=== PATIENT | female | born 1995 | race African-American/Black ===

== ENCOUNTER 2018-06-22 15:51 | Emergency (ER) | payer SELFPAY ==
--- NOTE | 2018-06-22 17:07 | RAD ---
LEFT WRIST 3 VIEWS: Date: 06/22/18 HISTORY: Pain. COMPARISON: Left wrist radiograph from 2016. FINDINGS: There is no acute fracture or malalignment. Soft tissues are unremarkable. Scaphoid is intact. IMPRESSION: No acute fracture or malalignment. POS: JULIO CESAR
[2018-06-22] MEDS ORDERED: Ketorolac Tromethamine 30 MG/ML VIAL ONE (18:07)
== END 2018-06-22 18:23 | disposition home or self-care (01) ==
LOC: ERS 15:51
DX: M79.645 Pain in left finger(s) (principal); F17.210 Nicotine dependence, cigarettes, uncomplicated
CPT/HCPCS: 96372; J1885

== ENCOUNTER 2019-03-05 08:33 | Emergency (ER) | payer OTHER, SELFPAY ==
[2019-03-05] MEDS ORDERED: diphenhydrAMINE 50 MG/ML VIAL ONE (09:50)
[2019-03-05] MEDS ORDERED: Metoclopramide HCl 10 MG/2 ML VIAL ONE (09:50)
[2019-03-05 10:08] LABS: Pregnancy Test - Urine (BHCG) Negative (Negative); Pregu Control Background? CLEAR/WHITE (CLR/WHITE); Pregu Control Bar Appear? YES (CONTROL BAR); Specific Gravity 1.022 (1.002-1.036)
[2019-03-05] MEDS ORDERED: Ketorolac Tromethamine 30 MG/ML VIAL ONE (10:45)
== END 2019-03-05 10:59 | disposition home or self-care (01) ==
LOC: ERS 08:33
DX: G43.909 Migraine, unspecified, not intractable, without status migrainosus (principal); F41.9 Anxiety disorder, unspecified; Z87.891 Personal history of nicotine dependence
CPT/HCPCS: 81025; 96365; 96375; J1200; J1885; J2765

== ENCOUNTER 2019-10-22 09:36 | Emergency (ER) | payer OTHER, SELFPAY ==
--- NOTE | 2019-10-22 10:49 | RAD ---
Exam: Left knee 4 views: HISTORY: Pain COMPARISON: 12/16/2014 FINDINGS: No evidence for fracture, dislocation, or other significant acute osseous abnormality. IMPRESSION: No significant acute process.
[2019-10-22] MEDS ORDERED: Ibuprofen 200 MG TAB ONE (11:16)
== END 2019-10-22 11:31 | disposition home or self-care (01) ==
LOC: ERS 09:36
DX: S83.92XA Sprain of unspecified site of left knee, initial encounter (principal); Z87.891 Personal history of nicotine dependence; X50.9XXA Other and unspecified overexertion or strenuous movements or postures, initial encounter

== ENCOUNTER 2019-12-31 14:30 | Emergency (ER) | payer SELFPAY ==
[2019-12-31 15:08] LABS: #Eosinphils 0.1 thou/uL (0.0-0.7); #Monocytes 0.5 thou/uL (0.11-0.59); #Neutrophils 3.2 thou/uL (1.40-6.50); %Basophils 0.5 % (0.0-1.0); %Eosinophils 1.2 % (0.0-10.0); %Lymphocytes 34.5 % (21.0-51.0); %Monocytes 9.1 % (0.0-10.0); %Neutrophils 54.7 % (42.0-75.0); Hemoglobin 13.3 g/dL (12.0-16.0); Mean Corpuscular Hemoglobin 30.8 pg (27.0-31.0); Mean Corpuscular Volume 93.3 fL (78.0-98.0); Mean Platelet Volume 6.5 fL (7.4-10.4); Platelet Count 533 thou/uL (130-400); RBC Distribution Width 13.3 % (11.5-14.5); Red Blood Cell (RBC) Count 4.31 mill/uL (4.20-5.40); White Blood Cell (WBC) Count 5.9 thou/uL (4.8-10.8)
[2019-12-31 15:28] LABS: ALT (SGPT) 9 U/L (8-55); AST (SGOT) 13 U/L (5-34); Albumin 4.4 g/dL (3.5-5.0); Alkaline Phosphatase 64 U/L (40-110); Anion Gap 11 mmol/L (10-20); BUN (Urea Nitrogen) 20 mg/dL (7.0-18.7); Bilirubin, Total 0.2 mg/dL (0.2-1.2); Calc. Creatinine Clearance 0 mL/min (70-130); Calcium 9.5 mg/dL (7.8-10.44); Carbon Dioxide 23 mmol/L (22-29); Chloride 110 mmol/L (98-107); Estimated GFR-MDRD Greater than 90; Globulin 3.1 g/dL (2.4-3.5); Glucose 89 mg/dL (70-105); Protein, Total 7.5 g/dL (6.0-8.3); Sodium 140 mmol/L (136-145)
[2019-12-31 15:48] LABS: Bilirubin Negative (Negative); Blood, Urine Negative (Negative); Clarity Turbid (Clear); Glucose, Urine (Dipstick) Normal (Negative); Leukocyte 500 Leu/uL (Negative); Nitrite Negative (Negative); Protein, Urine (Dipstick) 10 mg/dL (Neg-Trace); Urobilinogen Normal mg/dL (Less than 2)
[2019-12-31 16:01] LABS: Bacteria/HPF 3+ HPF (None Seen)
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
== END 2019-12-31 17:45 | disposition home or self-care (01) ==
LOC: ERS 14:30
DX: O03.80 Unspecified complication following complete or unspecified spontaneous abortion (principal); F41.9 Anxiety disorder, unspecified; Z87.891 Personal history of nicotine dependence
CPT/HCPCS: 36415; 76856; 80053; 81003; 81015; 84702; 85025; 86900; 86901

== ENCOUNTER 2020-04-23 08:40 | Inpatient (IN) | payer OTHER, SELFPAY ==
[2020-04-23] MEDS ORDERED: Adacel (T-DAP) 0.5 ML SYRINGE ONE (08:49)
--- NOTE | 2020-04-23 08:57 | RAD ---
Chest one view HISTORY: Chest pain. FINDINGS: No comparison. Cardiac silhouette is magnified by projection. Shallow inspiration accentuat es pulmonary markings. Mediastinum is midline. No lobar consolidation or evidence of pneumothorax. monitoring specialist leads overlie the chest. IMPRESSION : No abnormalities are demonstrated.
[2020-04-23 08:59] LABS: #Eosinphils 0.2 thou/uL (0.0-0.7); #Lymphocytes 4.2 thou/uL (1.20-3.40); #Monocytes 0.7 thou/uL (0.11-0.59); #Neutrophils 9.2 thou/uL (1.40-6.50); %Basophils 0.3 % (0.0-1.0); %Eosinophils 1.4 % (0.0-10.0); %Lymphocytes 29.4 % (21.0-51.0); %Monocytes 5.1 % (0.0-10.0); %Neutrophils 63.8 % (42.0-75.0); Hemoglobin 11.7 g/dL (12.0-16.0); Mean Corpuscular HGB CONC 31.9 g/dL (32.0-36.0); Mean Corpuscular Hemoglobin 30.2 pg (27.0-31.0); Mean Corpuscular Volume 94.9 fL (78.0-98.0); Mean Platelet Volume 6.6 fL (7.4-10.4); Platelet Count 548 thou/uL (130-400); RBC Distribution Width 13.4 % (11.5-14.5); Red Blood Cell (RBC) Count 3.86 mill/uL (4.20-5.40); White Blood Cell (WBC) Count 14.4 thou/uL (4.8-10.8)
[2020-04-23 09:05] LABS: BHCG - Serum Negative (NEGATIVE); Pregs Control Background? CLEAR/WHITE (CLR/WHITE); Pregs Control Bar Appear? YES (CONTROL BAR)
[2020-04-23 09:16] LABS: ALT (SGPT) 36 U/L (8-55); AST (SGOT) 65 U/L (5-34); Albumin 3.8 g/dL (3.5-5.0); Alcohol 105 mg/dL (Less than 10); Alkaline Phosphatase 62 U/L (40-110); Anion Gap 14 mmol/L (10-20); BUN (Urea Nitrogen) 13 mg/dL (7.0-18.7); Bilirubin, Total 0.2 mg/dL (0.2-1.2); Calc. Creatinine Clearance 0 mL/min (70-130); Calcium 8.1 mg/dL (7.8-10.44); Carbon Dioxide 18 mmol/L (22-29); Chloride 113 mmol/L (98-107); Estimated GFR-MDRD 86; Globulin 2.8 g/dL (2.4-3.5); Glucose 133 mg/dL (70-105); Potassium 3.7 mmol/L (3.5-5.1); Protein, Total 6.6 g/dL (6.0-8.3); Sodium 141 mmol/L (136-145)
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
[2020-04-23] MEDS ORDERED: Iopamidol-370 76% 500 ML 1 ML ONE ×2 (09:43→09:44)
[2020-04-23 09:44] LABS: Bilirubin Negative (Negative); Blood, Urine Negative (Negative); Clarity Clear (Clear); Glucose, Urine (Dipstick) Normal (Negative); Leukocyte Negative Leu/uL (Negative); Nitrite Negative (Negative); Protein, Urine (Dipstick) Negative (Neg-Trace); Urobilinogen Normal mg/dL (Less than 2)
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
[2020-04-23] MEDS ORDERED: Ondansetron PF 4 MG/2 ML Vial ONE (10:33)
[2020-04-23] MEDS ORDERED: HYDROmorphone 0.5 MG/0.5 ML SYRINGE ONE (11:02)
[2020-04-23] MEDS ORDERED: Ketorolac Tromethamine 30 MG/ML VIAL ONE (11:03)
[2020-04-23] MEDS ORDERED: Lidocaine 1% w/Epinephrine 1:100K 20 ML VIAL ONE (11:15)
[2020-04-23] MEDS ORDERED: Lidocaine 1% (PF) 30 ML VIAL ONE (11:15)
[2020-04-23] MEDS ORDERED: Rocuronium Bromide 10 MG/ML (10ML VIAL) ONE (11:20)
[2020-04-23] MEDS ORDERED: Propofol 1,000 MG/100 ML VIAL IV ONE (11:20)
[2020-04-23] MEDS ORDERED: Ondansetron PF 4 MG/2 ML Vial IVP PRN (12:17)
[2020-04-23] MEDS ORDERED: Dextrose 50% Abboject 50 ML SYRINGE SLOW IVP PRN (12:17)
[2020-04-23] MEDS ORDERED: Dextrose 5% in Water 1,000 ML IV PRN (12:17)
[2020-04-23] MEDS ORDERED: Ventilator Sedation Protocol 1 EACH FS ONE (12:21)
[2020-04-23] MEDS ORDERED: Lorazepam 2 MG/ML VIAL SLOW IVP PRN (12:28)
[2020-04-23] MEDS ORDERED: Morphine 2 MG/ML SYRINGE SLOW IVP PRN (12:28)
[2020-04-23] MEDS ORDERED: Fentanyl BOLUS 250 ML IVPB PRN (12:28)
[2020-04-23] MEDS ORDERED: Propofol BOLUS 1,000 MG/100 ML VIAL IV PRN (12:28)
[2020-04-23] MEDS ORDERED: DISCONTINUE PREVIOUS NARCOTIC PAIN MEDICATIONS AND BENZODIAZEPINES FS SCH (12:28)
[2020-04-23] MEDS ORDERED: Sodium Chloride 0.9% 1,000 ML IV SCH (12:30)
[2020-04-23 12:35] LABS: Lactic Acid 2.2 mmol/L (0.5-2.2)
[2020-04-23] MEDS ORDERED: Fentanyl 100 MCG/2 ML VIAL ONE ×2 (12:42→13:15)
[2020-04-23 13:02] LABS: Actual Bicarbonate (HCO3a) 17.1 mEq/L (22-28); Base Excess (BEa) -9.5 mEq/L (-2.0 to +3.0); CO2 Tension 39.6 mmHg (35.0-45.0); Calcium, Ionized 1.11 mmol/L (1.12-1.30); Carboxyhemoglobin (COHb) 0.6 gm% (0.0-3.0); Hemoglobin (Hb) 11.1 g/dL (12.0-16.0); O2 Tension (PaO2), arterial 270.9 mmHg (80.0-100.0); Potassium - ABG Lab 3.49 mmol/L (3.70-5.30)
[2020-04-23] MEDS ORDERED: Sodium Bicarb 50 MEQ/50 ML Abboject 8.4% SYRINGE IVP SCH (13:15)
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
[2020-04-23] MEDS: fentaNYL Citrate/PF 2,000 MCG in Sodium Chloride 0.9% 60 ML IV SCH (13:49)
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
[2020-04-23] MEDS: Lactated Ringer's 1,000 ML IV SCH ×2 (14:13→21:27)
[2020-04-23] MEDS: Propofol 1,000 MG/100 ML VIAL IV PRN ×3 (14:28→21:26)
[2020-04-23 14:32] VITALS: BMI 44.1
[2020-04-23 15:02] LABS: Puncture Site RRAD; pH, Arterial 7.25 (7.35-7.45)
--- NOTE | 2020-04-23 15:31 | RAD ---
EXAM: CHEST ONE VIEW: History: Post intubation. FINDINGS: NG tube and endotracheal tubes are in satisfactory position. Several minimally displaced right rib fr actures are noted without significant pneumothorax or pleural effusion. The left chest is unremarkabl e. IMPRESSION: NG tube and endotracheal tubes in position. Right rib fractures. No overt pneumothorax or pleural eff usion. POS: [facility]
[2020-04-23 16:15] LABS: CK (CPK) 626 U/L (29-168); Magnesium 1.6 mg/dL (1.6-2.6); Phosphorus 3.8 mg/dL (2.3-4.7)
[2020-04-23] MEDS ORDERED: Calcium Chloride 1 GM/10 ML Abboject SYRINGE IVP SCH (16:30)
[2020-04-23] MEDS ORDERED: Magnesium 2 GM/50 ML 2 GM in Premix Bag 1 BAG IVPB SCH (16:30)
[2020-04-23 17:50] LABS: Medtox Reader # READER 4; THC/Cannabinoid Screen Detected (NotDetected)
[2020-04-23 17:51] LABS: Amphetamine Not Detected (NotDetected); Barbiturates Screen Not Detected (NotDetected); Benzodiazepine Screen Not Detected (NotDetected); Cocaine Metabolite Screen Not Detected (NotDetected); Medtox Control Line Valid? VALID (VALID); Methadone Not Detected (NotDetected); Methamphetamine Not Detected (NotDetected); Opiate Screen Not Detected (NotDetected); Oxycodone Screen Not Detected (NotDetected); Phencyclidine (PCP) Not Detected (NotDetected); Tricyclic Screen Not Detected (NotDetected)
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
[2020-04-23 18:28] LABS: Actual Bicarbonate (HCO3a) 20.8 mEq/L (22-28); Base Excess (BEa) -3.6 mEq/L (-2.0 to +3.0); CO2 Tension 35.2 mmHg (35.0-45.0); Calcium, Ionized 1.23 mmol/L (1.12-1.30); Hemoglobin (Hb) 10.3 g/dL (12.0-16.0); O2 Tension (PaO2), arterial 90.8 mmHg (80.0-100.0); Potassium - ABG Lab 3.82 mmol/L (3.70-5.30); pH, Arterial 7.39 (7.35-7.45)
[2020-04-23 18:29] LABS: Puncture Site R RADIAL
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
[2020-04-23] MEDS: Famotidine/PF 20 mg/2ml Vial SLOW IVP SCH (21:27)
[2020-04-24] MEDS: Propofol 1,000 MG/100 ML VIAL IV PRN ×6 (00:53→21:34)
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
[2020-04-24 04:14] LABS: Phosphorus 3.2 mg/dL (2.3-4.7)
[2020-04-24 04:15] LABS: Anion Gap 9 mmol/L (10-20); BUN (Urea Nitrogen) 13 mg/dL (7.0-18.7); Calc. Creatinine Clearance 239 mL/min (70-130); Carbon Dioxide 23 mmol/L (22-29); Chloride 110 mmol/L (98-107); Estimated GFR-MDRD Greater than 90; Glucose 110 mg/dL (70-105); Magnesium 2.2 mg/dL (1.6-2.6); Potassium 3.4 mmol/L (3.5-5.1); Sodium 139 mmol/L (136-145)
[2020-04-24] MEDS: Lactated Ringer's 1,000 ML IV SCH ×3 (04:48→23:39)
[2020-04-24] MEDS ORDERED: Potassium Phosphate 15 MMOL in Sodium Chloride 0.9% 250 ML 250 ML IVPB SCH (06:30)
[2020-04-24 06:53] LABS: Actual Bicarbonate (HCO3a) 23.2 mEq/L (22-28); Base Excess (BEa) -0.8 mEq/L (-2.0 to +3.0); CO2 Tension 35.4 mmHg (35.0-45.0); Calcium, Ionized 1.16 mmol/L (1.12-1.30); Carboxyhemoglobin (COHb) 1.4 gm% (0.0-3.0); Hemoglobin (Hb) 8.4 g/dL (12.0-16.0); O2 Tension (PaO2), arterial 110.9 mmHg (80.0-100.0); Potassium - ABG Lab 3.35 mmol/L (3.70-5.30); pH, Arterial 7.44 (7.35-7.45)
[2020-04-24 06:55] LABS: Puncture Site ALINE
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
[2020-04-24] MEDS ORDERED: Sodium Chloride 0.9% 1,000 ML IV SCH (08:45)
[2020-04-24] MEDS: Famotidine/PF 20 mg/2ml Vial SLOW IVP SCH ×2 (09:00→20:10)
[2020-04-24] MEDS ORDERED: Pantoprazole 40 MG VIAL IVP SCH (09:00)
[2020-04-24 09:13] LABS: #Lymphocytes 1.3 thou/uL (1.20-3.40); #Monocytes 0.5 thou/uL (0.11-0.59); %Basophils 0.3 % (0.0-1.0); %Eosinophils 0.6 % (0.0-10.0); %Lymphocytes 19.2 % (21.0-51.0); %Monocytes 6.5 % (0.0-10.0); %Neutrophils 73.4 % (42.0-75.0); Hemoglobin 8.6 g/dL (12.0-16.0); Mean Corpuscular HGB CONC 33.1 g/dL (32.0-36.0); Mean Corpuscular Hemoglobin 31.6 pg (27.0-31.0); Mean Corpuscular Volume 95.3 fL (78.0-98.0); Mean Platelet Volume 6.7 fL (7.4-10.4); Platelet Count 366 thou/uL (130-400); RBC Distribution Width 13.7 % (11.5-14.5); Red Blood Cell (RBC) Count 2.73 mill/uL (4.20-5.40); White Blood Cell (WBC) Count 6.9 thou/uL (4.8-10.8)
[2020-04-24] MEDS: Dexamethasone 4 MG in Sodium Chloride 0.9% 50 ML IVPB SCH ×3 (09:32→20:10)
[2020-04-24] MEDS: fentaNYL Citrate/PF 2,000 MCG in Sodium Chloride 0.9% 60 ML IV SCH (09:45)
--- NOTE | 2020-04-24 10:32 | RAD ---
CHEST 1 VIEW: HISTORY: Respiratory insufficiency. COMPARISON: 04/23/2020. FINDINGS/IMPRESSION: There are some right rib fractures. No significant pneumothorax. Life support tubes remain in place and stable. IMPRESSION: Stable-appearing chest. Continue short-term followup. POS: [facility]
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
[2020-04-24 16:56] LABS: Hemoglobin 7.6 g/dL (12.0-16.0); Platelet Count 304 thou/uL (130-400)
[2020-04-25] MEDS: Propofol 1,000 MG/100 ML VIAL IV PRN ×6 (01:50→21:07)
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
[2020-04-25] MEDS: Dexamethasone 4 MG in Sodium Chloride 0.9% 50 ML IVPB SCH ×4 (03:34→21:06)
[2020-04-25 04:12] LABS: #Lymphocytes 0.5 thou/uL (1.20-3.40); #Monocytes 0.3 thou/uL (0.11-0.59); %Eosinophils 0.1 % (0.0-10.0); %Lymphocytes 6.9 % (21.0-51.0); %Monocytes 3.7 % (0.0-10.0); %Neutrophils 89.3 % (42.0-75.0); Hemoglobin 7.3 g/dL (12.0-16.0); Mean Corpuscular HGB CONC 32.5 g/dL (32.0-36.0); Mean Corpuscular Hemoglobin 31.2 pg (27.0-31.0); Mean Corpuscular Volume 96.1 fL (78.0-98.0); Platelet Count 315 thou/uL (130-400); RBC Distribution Width 13.6 % (11.5-14.5); Red Blood Cell (RBC) Count 2.32 mill/uL (4.20-5.40); White Blood Cell (WBC) Count 7.8 thou/uL (4.8-10.8)
[2020-04-25 04:55] LABS: Anion Gap 8 mmol/L (10-20); BUN (Urea Nitrogen) 10 mg/dL (7.0-18.7); Calc. Creatinine Clearance 246 mL/min (70-130); Calcium 8.1 mg/dL (7.8-10.44); Carbon Dioxide 23 mmol/L (22-29); Chloride 111 mmol/L (98-107); Estimated GFR-MDRD Greater than 90; Glucose 148 mg/dL (70-105); Magnesium 2.1 mg/dL (1.6-2.6); Potassium 3.9 mmol/L (3.5-5.1); Sodium 138 mmol/L (136-145)
[2020-04-25] MEDS: fentaNYL Citrate/PF 2,000 MCG in Sodium Chloride 0.9% 60 ML IV SCH ×2 (05:21→23:01)
[2020-04-25 07:09] LABS: Actual Bicarbonate (HCO3a) 22.4 mEq/L (22-28); Base Excess (BEa) -1.3 mEq/L (-2.0 to +3.0); Calcium, Ionized 1.14 mmol/L (1.12-1.30); Carboxyhemoglobin (COHb) 1.8 gm% (0.0-3.0); O2 Tension (PaO2), arterial 97.9 mmHg (80.0-100.0); pH, Arterial 7.45 (7.35-7.45)
[2020-04-25 07:19] LABS: Puncture Site ALINE
[2020-04-25] MEDS: Lactated Ringer's 1,000 ML IV SCH ×3 (08:29→23:47)
[2020-04-25] MEDS: Famotidine/PF 20 mg/2ml Vial SLOW IVP SCH ×2 (08:30→21:06)
[2020-04-25] MEDS ORDERED: Furosemide 20 MG/2 ML VIAL SLOW IVP SCH ×2 (08:30→22:00)
[2020-04-25] MEDS: Polyethylene Glycol 3350 17 GM Packet PO SCH (08:31)
[2020-04-25] MEDS: Senokot S 8.6-50 MG TAB PO SCH ×2 (08:31→21:06)
[2020-04-25] MEDS: Folic Acid 1 MG TAB PER TUBE SCH (08:35)
[2020-04-25] MEDS: Thiamine 100 MG TAB PER TUBE SCH (08:35)
[2020-04-25] MEDS: Multivits W-Minerals Liquid 15 ML LIQ PER TUBE SCH (09:27)
[2020-04-25 19:28] LABS: Hemoglobin 7.5 g/dL (12.0-16.0); Platelet Count 373 thou/uL (130-400)
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
[2020-04-25] MEDS ORDERED: Acetaminophen 650 MG/20.3 ML UDCUP PO PRN (23:21)
[2020-04-25] MEDS ORDERED: Acetaminophen 650 MG/20.3 ML UDCUP PER TUBE PRN (23:30)
[2020-04-26] MEDS: Propofol 1,000 MG/100 ML VIAL IV PRN ×3 (01:42→09:12)
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
[2020-04-26] MEDS: Dexamethasone 4 MG in Sodium Chloride 0.9% 50 ML IVPB SCH ×2 (03:08→08:57)
[2020-04-26 06:41] LABS: Band 14 % (5-11); Hemoglobin 6.6 g/dL (12.0-16.0); Lymphocytes 9 % (21-51); MDiff Complete? YES; Mean Corpuscular HGB CONC 32.8 g/dL (32.0-36.0); Mean Corpuscular Hemoglobin 31.1 pg (27.0-31.0); Mean Corpuscular Volume 94.8 fL (78.0-98.0); Mean Platelet Volume 7.2 fL (7.4-10.4); Monocytes 11 % (0-10); Neutrophil 66 % (42-75); Platelet Count 347 thou/uL (130-400); RBC Distribution Width 13.8 % (11.5-14.5); Red Blood Cell (RBC) Count 2.11 mill/uL (4.20-5.40); White Blood Cell (WBC) Count 12.7 thou/uL (4.8-10.8)
--- NOTE | 2020-04-26 08:37 | RAD ---
Exam: Chest one view HISTORY:Follow-up pneumothorax Comparison: 04/24/2020 FINDINGS: Lines and tubes: Endotracheal tube at the level of thoracic inlet. Nasogastric tube extends beyond th e diaphragm. Cardiac silhouette: Normal Aorta: Unremarkable Pulmonary vessels: Normal Costophrenic angles: Clear LUNGS: Diminished lung volumes with patchy opacities. Pneumothorax: No definite pneumothorax Osseous abnormalities: Multiple right rib fractures. IMPRESSION: Findings compatible with posttraumatic change. No significant interval change when compar ed to the previous exam.
[2020-04-26] MEDS: Famotidine/PF 20 mg/2ml Vial SLOW IVP SCH ×2 (08:56→21:04)
[2020-04-26] MEDS: Senokot S 8.6-50 MG TAB PO SCH ×2 (08:57→21:04)
[2020-04-26] MEDS: Folic Acid 1 MG TAB PER TUBE SCH (08:57)
[2020-04-26] MEDS: Multivits W-Minerals Liquid 15 ML LIQ PER TUBE SCH (08:57)
[2020-04-26] MEDS: Thiamine 100 MG TAB PER TUBE SCH (08:57)
[2020-04-26] MEDS: Polyethylene Glycol 3350 17 GM Packet PO SCH (08:57)
[2020-04-26] MEDS: Ascorbic Acid 500 mg Chewable Tablet PER TUBE SCH ×2 (08:59→21:05)
[2020-04-26] MEDS ORDERED: Morphine 2 MG/ML SYRINGE SLOW IVP PRN (11:16)
[2020-04-26] MEDS ORDERED: Acetaminophen 650 MG/20.3 ML UDCUP PER TUBE PRN (11:17)
[2020-04-26] MEDS: Acetaminophen 500 MG TAB PO SCH ×2 (13:09→18:45)
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
[2020-04-26] MEDS: traMADol HCl 50 MG TAB PO PRN (22:50)
[2020-04-27] MEDS: Acetaminophen 500 MG TAB PO SCH ×5 (00:29→23:10)
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
[2020-04-27] MEDS: traMADol HCl 50 MG TAB PO PRN ×4 (06:48→20:37)
[2020-04-27] MEDS: Thiamine 100 MG TAB PER TUBE SCH (08:42)
[2020-04-27] MEDS: Multivitamin W/ Minerals 1 TAB PO SCH (08:42)
[2020-04-27] MEDS: Folic Acid 1 MG TAB PER TUBE SCH (08:43)
[2020-04-27] MEDS: Senokot S 8.6-50 MG TAB PO SCH ×2 (08:43→20:38)
[2020-04-27] MEDS: Ascorbic Acid 500 mg Chewable Tablet PER TUBE SCH ×2 (08:43→20:39)
[2020-04-27] MEDS: Polyethylene Glycol 3350 17 GM Packet PO SCH (08:43)
[2020-04-27] MEDS: Famotidine 20 MG TAB PO SCH ×2 (08:43→20:38)
[2020-04-27] MEDS ORDERED: Ferrous Sulfate 325 MG TAB PO SCH (10:45)
[2020-04-27] MEDS: Cyclobenzaprine 10 MG TAB PO PRN ×2 (11:10→20:38)
[2020-04-27 11:40] LABS: Band 18 % (5-11); Hemoglobin 8.4 g/dL (12.0-16.0); Hypochromia SLIGHT = 6-15 cells (100X) (0-5/hpf); Lymphocytes 23 % (21-51); MDiff Complete? YES; Mean Corpuscular HGB CONC 30.7 g/dL (32.0-36.0); Mean Corpuscular Hemoglobin 29.1 pg (27.0-31.0); Mean Corpuscular Volume 94.8 fL (78.0-98.0); Mean Platelet Volume 7.7 fL (7.4-10.4); Monocytes 5 % (0-10); Neutrophil 49 % (42-75); Nucleated RBC 1 % (0); Platelet Count 251 thou/uL (130-400); Platelet Morphology Comment Appears Adequate; Polychromasia MODERATE = 3-4 cells (100X) (0-2/hpf); RBC Distribution Width 14.5 % (11.5-14.5); Reactive Lymphocytes 5 % (0-10); Red Blood Cell (RBC) Count 2.89 mill/uL (4.20-5.40); White Blood Cell (WBC) Count 10.3 thou/uL (4.8-10.8)
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
[2020-04-27] MEDS: Gabapentin 300 MG CAP PO SCH ×2 (14:11→20:38)
[2020-04-27] MEDS: Ferrous Sulfate 325 MG TAB PO SCH (20:39)
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
[2020-04-28] MEDS ORDERED: Morphine 4 MG/ML VIAL SLOW IVP SCH (00:30)
[2020-04-28] MEDS: Acetaminophen 500 MG TAB PO SCH ×2 (05:37→20:37)
[2020-04-28] MEDS: traMADol HCl 50 MG TAB PO PRN (05:54)
[2020-04-28] MEDS: Cyclobenzaprine 10 MG TAB PO PRN ×3 (05:54→23:01)
[2020-04-28] MEDS ORDERED: Acetaminophen/Codeine 30-300mg Tablet PO PRN (07:46)
[2020-04-28] MEDS ORDERED: traMADol HCl 50 MG TAB PO PRN (07:46)
[2020-04-28] MEDS: Ascorbic Acid 500 mg Chewable Tablet PER TUBE SCH ×2 (08:04→20:37)
[2020-04-28] MEDS: Thiamine 100 MG TAB PER TUBE SCH (08:04)
[2020-04-28] MEDS: Senokot S 8.6-50 MG TAB PO SCH ×2 (08:05→20:37)
[2020-04-28] MEDS: Gabapentin 300 MG CAP PO SCH ×3 (08:05→20:37)
[2020-04-28] MEDS: Multivitamin W/ Minerals 1 TAB PO SCH (08:05)
[2020-04-28] MEDS: Ferrous Sulfate 325 MG TAB PO SCH ×2 (08:05→20:37)
[2020-04-28] MEDS: Famotidine 20 MG TAB PO SCH ×2 (08:05→20:37)
[2020-04-28] MEDS: Folic Acid 1 MG TAB PER TUBE SCH (08:05)
[2020-04-28] MEDS: Polyethylene Glycol 3350 17 GM Packet PO SCH (08:05)
[2020-04-28] MEDS: Acetaminophen/Codeine 30-300mg Tablet PO PRN ×2 (08:06→14:37)
[2020-04-28] MEDS: Acetaminophen 325 MG TAB PO SCH ×2 (08:45→14:37)
[2020-04-28] MEDS: traMADol HCl 50 MG TAB PO SCH ×3 (11:23→23:01)
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
[2020-04-29] MEDS: traMADol HCl 50 MG TAB PO SCH (05:07)
[2020-04-29 07:54] VITALS: BP 140/85; TEMP 99
[2020-04-29] MEDS: Ascorbic Acid 500 mg Chewable Tablet PER TUBE SCH (08:01)
[2020-04-29] MEDS: Famotidine 20 MG TAB PO SCH (08:01)
[2020-04-29] MEDS: Multivitamin W/ Minerals 1 TAB PO SCH (08:01)
[2020-04-29] MEDS: Acetaminophen 500 MG TAB PO SCH (08:01)
[2020-04-29] MEDS: Polyethylene Glycol 3350 17 GM Packet PO SCH (08:01)
[2020-04-29] MEDS: Cyclobenzaprine 10 MG TAB PO PRN (08:01)
[2020-04-29] MEDS: Gabapentin 300 MG CAP PO SCH (08:02)
[2020-04-29] MEDS: Ferrous Sulfate 325 MG TAB PO SCH (08:02)
[2020-04-29] MEDS: Thiamine 100 MG TAB PER TUBE SCH (08:02)
[2020-04-29] MEDS: Senokot S 8.6-50 MG TAB PO SCH (08:02)
[2020-04-29] MEDS: Folic Acid 1 MG TAB PER TUBE SCH (08:02)
[2020-04-29] MEDS: Acetaminophen/Codeine 30-300mg Tablet PO PRN (09:33)
[2020-04-29] MEDS ORDERED: Cipro 250 MG TAB PO SCH (20:00)
== END 2020-04-29 10:55 | disposition home or self-care (01) | DRG 963 ==
LOC: ERS 08:40 → CCU 11:22 → SURG A 04-27 11:32
PROVIDERS: ADMIT Surgery; ATTEND Surgery
PROC: 0BH17EZ Insertion of Endotracheal Airway into Trachea, Via Natural or Artificial Opening (ICD-10-PCS; principal; 2020-04-23)
PROC: 5A1945Z Respiratory Ventilation, 24-96 Consecutive Hours (ICD-10-PCS; 2020-04-23)
PROC: 0HQEXZZ Repair Left Lower Arm Skin, External Approach (ICD-10-PCS; 2020-04-23)
PROC: 03HY32Z Insertion of Monitoring Device into Upper Artery, Percutaneous Approach (ICD-10-PCS; 2020-04-23)
PROC: 3E033XZ Introduction of Vasopressor into Peripheral Vein, Percutaneous Approach (ICD-10-PCS; 2020-04-23)
PROC: 0HQ0XZZ Repair Scalp Skin, External Approach (ICD-10-PCS; 2020-04-23)
PROC: 4A133B1 Monitoring of Arterial Pressure, Peripheral, Percutaneous Approach (ICD-10-PCS; 2020-04-23)
PROC: 4A133J1 Monitoring of Arterial Pulse, Peripheral, Percutaneous Approach (ICD-10-PCS; 2020-04-23)
DX: S27.2XXA Traumatic hemopneumothorax, initial encounter (principal); R40.2113 Coma scale, eyes open, never, at hospital admission; S06.300A Unspecified focal traumatic brain injury without loss of consciousness, initial encounter; J96.00 Acute respiratory failure, unspecified whether with hypoxia or hypercapnia; S12.591A Other nondisplaced fracture of sixth cervical vertebra, initial encounter for closed fracture; S22.41XA Multiple fractures of ribs, right side, initial encounter for closed fracture; S12.031A Nondisplaced posterior arch fracture of first cervical vertebra, initial encounter for closed fracture; D62 Acute posthemorrhagic anemia; R40.2362 Coma scale, best motor response, obeys commands, at arrival to emergency department; R40.2132 Coma scale, eyes open, to sound, at arrival to emergency department; R40.2252 Coma scale, best verbal response, oriented, at arrival to emergency department; F17.210 Nicotine dependence, cigarettes, uncomplicated; V89.2XXA Person injured in unspecified motor-vehicle accident, traffic, initial encounter; S01.01XA Laceration without foreign body of scalp, initial encounter; F10.129 Alcohol abuse with intoxication, unspecified; Y90.5 Blood alcohol level of 100-119 mg/100 ml; R40.2363 Coma scale, best motor response, obeys commands, at hospital admission; E87.6 Hypokalemia
CPT/HCPCS: 10021; 12001; 31500; 36415; 36416; 36430; 36600; 51702; 70450; 70486; 70498; 71045; 71260; 72125; 74177; 80048; 80053; 80306; 80307; 81003; 82550; 82805; 83605; 83735; 84100; 84703; 85007; 85025; 85027; 86850; 86900; 86901; 87070; 87077; 87186; 87205; 89220; 90471; 90715; 93005; 94002; 94003; 94640; 94760; 96365; 96366; 96375; 96376; 99292; G0390; J0690; J1100; J1170; J1885; J1940; J2001; J2060; J2270; J2405; J2704; J3010; J3475; J3490; J7050; J7620; P9016; P9045; Q9967; S0028

== ENCOUNTER 2020-05-08 16:03 | Outpatient (CLI) | payer OTHER ==
--- NOTE | 2020-05-08 19:00 | RAD ---
TWO VIEW CHEST: 05/08/20 HISTORY: Rib fractures. COMPARISON: 04/26/20. FINDINGS: Displaced fractures of the posterior right 7th and 8th ribs are seen on this exam. The lungs appear w ell aerated and clear. No significant pneumothorax identified. No infiltrate or significant effusion apparent. Heart and mediastinum unremarkable. IMPRESSION: Right rib fractures. No acute lung process. POS: [facility]
== END 2020-05-08 16:04 | disposition home or self-care (01) ==
LOC: BICRAD 16:03
PROVIDERS: ATTEND Surgery
DX: S22.41XA Multiple fractures of ribs, right side, initial encounter for closed fracture (principal)
CPT/HCPCS: 71046

== ENCOUNTER 2020-08-18 02:09 | Inpatient (IN) | payer MEDICAID, SELFPAY ==
[2020-08-18 02:37] LABS: #Eosinphils 0.2 thou/uL (0.0-0.7); #Lymphocytes 2.2 thou/uL (1.20-3.40); #Monocytes 0.5 thou/uL (0.11-0.59); #Neutrophils 3.1 thou/uL (1.40-6.50); %Basophils 0.5 % (0.0-1.0); %Eosinophils 3.2 % (0.0-10.0); %Lymphocytes 36.8 % (21.0-51.0); %Monocytes 7.6 % (0.0-10.0); Hemoglobin 13.1 g/dL (12.0-16.0); Mean Corpuscular HGB CONC 31.8 g/dL (32.0-36.0); Mean Corpuscular Hemoglobin 28.7 pg (27.0-31.0); Mean Corpuscular Volume 90.4 fL (78.0-98.0); Mean Platelet Volume 6.6 fL (7.4-10.4); Platelet Count 526 thou/uL (130-400); RBC Distribution Width 14.7 % (11.5-14.5); Red Blood Cell (RBC) Count 4.54 mill/uL (4.20-5.40)
[2020-08-18 03:00] LABS: BHCG - Serum Negative (NEGATIVE); Pregs Control Background? CLEAR/WHITE (CLR/WHITE); Pregs Control Bar Appear? YES (CONTROL BAR)
[2020-08-18 03:11] LABS: ALT (SGPT) 15 U/L (8-55); AST (SGOT) 17 U/L (5-34); Acetaminophen Less than 6.0 mcg/mL (10.0-30.0); Albumin 4.3 g/dL (3.5-5.0); Alcohol 189 mg/dL (Less than 10); Alkaline Phosphatase 80 U/L (40-110); Anion Gap 16 mmol/L (10-20); BUN (Urea Nitrogen) 10 mg/dL (7.0-18.7); Bilirubin, Total Less than 0.2 mg/dL (0.2-1.2); Calc. Creatinine Clearance 0 mL/min (70-130); Calcium 8.9 mg/dL (7.8-10.44); Carbon Dioxide 17 mmol/L (22-29); Chloride 114 mmol/L (98-107); Estimated GFR-MDRD 84; Globulin 3.2 g/dL (2.4-3.5); Glucose 100 mg/dL (70-105); Potassium 3.4 mmol/L (3.5-5.1); Protein, Total 7.5 g/dL (6.0-8.3); Salicylate Less than 8.0 mg/dL (15.0-30.0); Sodium 144 mmol/L (136-145)
[2020-08-18 03:12] LABS: Bilirubin Negative (Negative); Blood, Urine Negative (Negative); Clarity Clear (Clear); Glucose, Urine (Dipstick) Normal (Negative); Ketone, Urine Negative (Negative); Leukocyte Negative Leu/uL (Negative); Nitrite Negative (Negative); Protein, Urine (Dipstick) Negative (Neg-Trace); Specific Gravity, Urine 1.006 (1.002-1.036); Urobilinogen Normal mg/dL (Less than 2)
[2020-08-18 03:21] LABS: Amphetamine Not Detected (NotDetected); Barbiturates Screen Not Detected (NotDetected); Benzodiazepine Screen Not Detected (NotDetected); Cocaine Metabolite Screen Not Detected (NotDetected); Medtox Control Line Valid? VALID (VALID); Medtox Reader # READER 4; Methadone Not Detected (NotDetected); Methamphetamine Not Detected (NotDetected); Opiate Screen Not Detected (NotDetected); Oxycodone Screen Not Detected (NotDetected); Phencyclidine (PCP) Not Detected (NotDetected); THC/Cannabinoid Screen Detected (NotDetected); Tricyclic Screen Not Detected (NotDetected)
[2020-08-18] MEDS ORDERED: Metoprolol Tartrate 5 MG/5 ML VIAL ONE (04:50)
[2020-08-18] MEDS ORDERED: Lorazepam 2 MG/ML VIAL SLOW IVP PRN (04:56)
[2020-08-18] MEDS ORDERED: Promethazine HCl 12.5 MG in Sodium Chloride 0.9% 50 ML IVPB PRN (04:57)
[2020-08-18] MEDS ORDERED: Ondansetron PF 4 MG/2 ML Vial IVP PRN (04:57)
[2020-08-18] MEDS ORDERED: Labetalol HCl 100 MG/20 ML VIAL SLOW IVP PRN (04:57)
[2020-08-18] MEDS ORDERED: Guaifenesin DM 100-10/5 ML UDCUP PO PRN (04:57)
[2020-08-18] MEDS ORDERED: Acetaminophen 325 MG TAB PO PRN (04:57)
[2020-08-18] MEDS ORDERED: cloNIDine 0.1 MG TAB PO PRN (04:57)
[2020-08-18] MEDS ORDERED: hydrALAZINE 20 MG/ML VIAL SLOW IVP PRN (04:57)
[2020-08-18] MEDS ORDERED: Ondansetron PF 4 MG/2 ML Vial ONE ×2 (04:58→04:59)
[2020-08-18] MEDS ORDERED: Electrolyte Replacement Protoc 1 EACH EACH FS SCH (05:00)
[2020-08-18] MEDS ORDERED: Lactated Ringer's 1,000 ML IV SCH (05:00)
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
[2020-08-18] MEDS ORDERED: levETIRAcetam 500 MG TAB PO SCH (05:15)
[2020-08-18] MEDS ORDERED: Electrolyte Replacement Protocol FS PRN (06:45)
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
[2020-08-18] MEDS: Famotidine 20 MG TAB PO SCH ×2 (08:56→21:31)
[2020-08-18] MEDS ORDERED: Potassium Chloride 20 MEQ TAB PO SCH (09:00)
[2020-08-18] MEDS ORDERED: PHOS-NAK 1 PKT PACK PO SCH (09:00)
[2020-08-18 09:06] VITALS: BMI 45.5
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
--- NOTE | 2020-08-18 10:27 | CT ---
CT BRAIN WITHOUT CONTRAST: HISTORY:Possible left extra-axial bleed COMPARISON:Earlier exam of 3:06 AM from same date FINDINGS: The finding on the previous exam along the left peripheral temporal lobe is no longer seen and is con sistent with an artifact. No evidence of acute infarct, hemorrhage, midline shift or abnormal extra-axial fluid collections is seen. The ventricular size is appropriate and the basilar cisterns are patent. The bony calvarium is intact. The visualized paranasal sinuses and mastoid air cells are well aerated. IMPRESSION: No CT evidence of acute intracranial process. This exam was interpreted in consultation with Dr. Selma Lackey (neuroradiologist) who concurs.
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
[2020-08-18] MEDS ORDERED: Enoxaparin Sodium 40 MG/0.4 ML SYRINGE SC SCH (21:00)
[2020-08-18] MEDS: levETIRAcetam 500 MG TAB PO SCH (21:31)
--- NOTE | 2020-08-19 00:55 | PDOC.HOSPP ---
- Subjective Encounter Date: 08/18/20 Subjective: Patient was seen and examined in bed. She denies any headache No significant events overnight. No seizures noted overnight - Objective Vital Signs & Weight: Vital Signs (12 hours) Temp Pulse Resp BP Pulse Ox 08/18/20 19:45 98.2 F 79 18 125/88 98 08/18/20 15:22 99.0 F 117 H 12 119/66 98 Weight Admit Weight 282 lb 1.6 oz Weight 282 lb 1.6 oz I&O: 08/17/20 08/18/20 08/19/20 06:59 06:59 06:59 Intake Total 1760 Output Total 500 Balance 1260 Result Diagrams: 08/19/20 04:44 08/19/20 04:44 Hospitalist ROS - Medication Medications: Active Medications Generic Name Dose Route Start Last Admin Trade Name Freq PRN Reason Stop Dose Admin Famotidine 20 mg 08/18/20 09:00 08/18/20 21:31 Famotidine 20 Mg Tab PO 20 mg BID ADOLFO Administration Levetiracetam 500 mg 08/18/20 21:00 08/18/20 21:31 Levetiracetam 500 Mg Tab PO 500 mg BID ADOLFO Administration Sodium Chloride 10 ml 08/18/20 09:00 08/18/20 21:31 Flush - Normal Saline 10 Ml Syringe IVF 10 ml Q12HR ADOLFO Administration - Exam General Appearance: awake alert General - other findings: Examined in bed. Heart - other findings: S1-S2 present and normal. No murmurs gallops or rubs Respiratory - other findings: Air entry adequate bilaterally. Gastrointestinal - other findings: Soft, nontender, Extremities: no edema Neurological: cranial nerve grossly intact, no focal deficits Psychiatric: A&O x 3 Hosp A/P - Plan 24-year-old female on admission on account of seizure-like activity with concerns for intra-cerebral bleed. Concerns for possible intracranial hemorrhage Ruled out with repeat scan by neurosurgery No surgical intervention at this moment Seizure-like activity Currently on [place] seizure activity noted Unfortunately could not get neurology to see her today I will have neurology assessment tomorrow prior to dischargeshe may need EEG Substance abuse Urine positive for marijuana counselled Alcohol abuse. We will keep monitoring. VTE prophylaxispatient ambulatory therefore none
[2020-08-19 05:25] LABS: #Eosinphils 0.1 thou/uL (0.0-0.7); #Lymphocytes 2.1 thou/uL (1.20-3.40); #Monocytes 0.5 thou/uL (0.11-0.59); %Basophils 0.2 % (0.0-1.0); %Eosinophils 2.3 % (0.0-10.0); %Lymphocytes 37.1 % (21.0-51.0); %Monocytes 8.4 % (0.0-10.0); Hemoglobin 12.5 g/dL (12.0-16.0); Mean Corpuscular HGB CONC 32.9 g/dL (32.0-36.0); Mean Corpuscular Hemoglobin 29.6 pg (27.0-31.0); Mean Platelet Volume 6.6 fL (7.4-10.4); Platelet Count 460 thou/uL (130-400); RBC Distribution Width 14.9 % (11.5-14.5); Red Blood Cell (RBC) Count 4.23 mill/uL (4.20-5.40); White Blood Cell (WBC) Count 5.8 thou/uL (4.8-10.8)
[2020-08-19 05:35] LABS: Anion Gap 14 mmol/L (10-20); BUN (Urea Nitrogen) 13 mg/dL (7.0-18.7); Calc. Creatinine Clearance 200 mL/min (70-130); Calcium 8.8 mg/dL (7.8-10.44); Carbon Dioxide 21 mmol/L (22-29); Chloride 108 mmol/L (98-107); Estimated GFR-MDRD Greater than 90; Glucose 89 mg/dL (70-105); Potassium 3.8 mmol/L (3.5-5.1); Sodium 139 mmol/L (136-145)
[2020-08-19] MEDS ORDERED: Magnesium 2 GM/50 ML 2 GM in Premix Bag 1 BAG IVPB SCH (06:30)
[2020-08-19] MEDS: levETIRAcetam 500 MG TAB PO SCH (08:27)
[2020-08-19] MEDS: Famotidine 20 MG TAB PO SCH (08:27)
[2020-08-19 11:42] VITALS: BP 122/88; TEMP 98.4
--- NOTE | 2020-08-19 14:08 | EKG ---
Test Reason : AMS Blood Pressure : / mmHG Vent. Rate : 113 BPM Atrial Rate : 113 BPM P-R Int : 150 ms QRS Dur : 082 ms QT Int : 352 ms P-R-T Axes : 062 059 032 degrees QTc Int : 482 ms Sinus tachycardia Cannot rule out Anterior infarct , age undetermined Abnormal ECG Confirmed by OLLIE TODD ([id number]), deputy editor in chief STEFANIE BURRIS ([id number]) on 08/19/2020 2:08:34 PM Referred By: Confirmed By:OLLIE TODD
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
--- NOTE | 2020-08-20 02:59 | DIS ---
DATE OF ADMISSION: 08/18/2020 DATE OF DISCHARGE: 08/19/2020 DISCHARGE DIAGNOSES: 1. Seizure secondarily to alcohol and marijuana use. 2. Polysubstance abuse with marijuana and alcohol. 3. Hypokalemia, resolved. CONSULTATIONS: Neurosurgical Service. Dr. Jade with Neurology Service. PERTINENT LABORATORY AND X-RAY FINDINGS: Potassium ranged between 3.4-3.8. CO2 ranged between 17-21. Total CK 165. Serum beta-hCG negative 08/18/2020. CBC showed a platelet count ranging between 460-526. Urinalysis negative. Urine drug screen dated 08/18/2020, positive for cannabis and plasma alcohol level of 189. CT of the brain without contrast dated 08/18/2020, showed attenuation artifact in the left peripheral temporal lobe. CT of the cervical spine dated 08/18/2020, showed no acute process. Repeat CT of the brain dated 08/18/2020, showed no acute intracranial process. HOSPITAL COURSE: The patient was admitted after presenting with seizure-like activity after apparently ingesting alcohol with acute intoxication and using concomitant marijuana. The patient was evaluated by EMS and received ketamine 500 mg as well as normal saline and Zofran. The patient underwent neuroimaging in the emergency room with CT showing questionable artifact versus subdural hematoma on initial imaging. Neurosurgical consultation was obtained with review of repeat CT imaging showing no acute process. The patient received IV Keppra in the emergency room, however, this was discontinued after consultation with Neurology Service. Recommended no further treatment for first-time seizure in the context of polysubstance use. I have examined the patient at the time of discharge and discussed followup instructions. The patient verbalizes understanding and agreement and ready for discharge on 08/19/2020. DISCHARGE MEDICATIONS: Reviewed and negative. FOLLOWUP: The patient may follow up with her primary care provider within 7 days of discharge. The patient may follow up with Dr. Korey Jade and to call his office for appointment time and date. CONDITION ON DISCHARGE: Stable. ACTIVITY: Ad-deepika. DIET: Regular. CODE STATUS: Full. DISPOSITION: To home 08/19/2020. TIME SPENT: Total time preparing and coordinating discharge, 33 minutes. Job ID: [id number]
== END 2020-08-19 13:50 | disposition home or self-care (01) | DRG 101 ==
LOC: ERS 02:09 → ERHOLD 05:34 → 2NO 08:22
PROVIDERS: ADMIT Internal Medicine; ATTEND Internal Medicine
DX: G40.89 Other seizures (principal); E87.2 Acidosis; F10.129 Alcohol abuse with intoxication, unspecified; F12.10 Cannabis abuse, uncomplicated; E87.6 Hypokalemia; Y90.6 Blood alcohol level of 120-199 mg/100 ml; F17.210 Nicotine dependence, cigarettes, uncomplicated
CPT/HCPCS: 36415; 70450; 72125; 80048; 80053; 80306; 80307; 81003; 82550; 83735; 84703; 85025; 93005; 94760; 96374; J2405; J3475